=== PATIENT | female | born 1990 | race Caucasian/White ===

== ENCOUNTER 2020-01-14 23:17 | Emergency (ER) | payer OTHER ==
[2020-01-15] MEDS ORDERED: KETOROLAC TROMETHAMINE 60 MG/2 ML SDV IM ONE (00:26)
--- NOTE | 2020-01-15 00:27 | ER Document Report ---
ED Medical Screen (RME) - General Chief Complaint: Flank Pain Stated Complaint: FLANK PAIN Notes: Patient is a 29-year-old white female with a history kidney stones and ovarian cyst who presents the emergency department the chief complaint of left flank pain that began earlier this evening. She states she is had kidney stones in the past and feels just like that. She admits to difficulty with urination as well as nausea and vomiting. She denies any fever or vaginal discharge. No difficulty with bowel movements. I have treated and performed a rapid initial assessment of this patient. A comprehensive ED assessment and evaluation of the patient, analysis of test results and completion of medical decision making process will be conducted by additional ED providers. PHYSICAL EXAMINATION: GENERAL: Well-appearing, well-nourished and in no acute distress. A&Ox4. Answers questions appropriately.
[2020-01-15 00:30] VITALS: BP 130/90
== END 2020-01-15 02:30 | disposition left against medical advice (07) ==
LOC: ER 23:17
DX: R10.9 Unspecified abdominal pain (principal); Z87.442 Personal history of urinary calculi; Z87.42 Personal history of other diseases of the female genital tract; Z53.20 Procedure and treatment not carried out because of patient's decision for unspecified reasons
CPT/HCPCS: 99281; 96372; J1885